=== PATIENT | male | born 1985 | race Caucasian/White ===

== ENCOUNTER 2022-03-03 07:01 | Outpatient (REF) | payer OTHER, SELFPAY ==
[2022-03-03 07:55] LABS: Alanine Aminotransferase 55 U/L (0-40); Albumin Level 4.9 g/dL (3.5-5.0); Alkaline Phosphatase 125 U/L (39-117); Anion Gap 11 (12-20); Aspartate Amino Transferase 27 U/L (5-37); Bilirubin Total 0.6 mg/dL (0.0-1.0); Blood Urea Nitrogen 12 mg/dL (9-16); C Reactive Protein 0.08 mg/dL (< or = 0.50); Carbon Dioxide 30 mmol/L (22-29); Chloride 104 mmol/L (96-108); Estimated Glomerular Filt Rate > 60; Glucose Random 109 mg/dL (60-115); Potassium 4.2 mmol/L (3.3-5.1); Sodium 141 mmol/L (135-145); Total Protein 7.7 g/dL (6.5-8.0)
[2022-03-03 08:18] LABS: Erythrocyte Sedimentation Rate 2 MM/HR (0-15)
[2022-03-10 09:47] LABS: Lamotrigine Lamictal 5.1 mcg/mL (4.0-18.0)
== END 2022-03-03 07:02 | disposition home or self-care (01) ==
LOC: HO.LAB 07:01
PROVIDERS: Visit Provider Psychiatry & Neurology Psychiatry
DX: F31.74 Bipolar disorder, in full remission, most recent episode manic (principal); R53.83 Other fatigue
CPT/HCPCS: 36415; 80053; 80175; 85652; 86140

== ENCOUNTER 2022-09-02 15:42 | Outpatient (REF) | payer OTHER, SELFPAY ==
[2022-09-02 16:46] LABS: Estimated Glomerular Filt Rate > 60
[2022-09-03 08:58] LABS: HIV AB/AG Nonreactive (Nonreactive); HIV Num 1 0.07 S/CO (0.00-0.99)
[2022-09-03 10:55] LABS: CT PCR NOT DETECTED (Not Detect.); NG PCR NOT DETECTED (Not Detect.)
[2022-09-07 14:53] LABS: HIV RNA PCR Qn Copies NOT DETECTED copies/mL (NOT DETECTED); HIV RNA PCR Qn Log Copies NOT DETECTED (NOT DETECTED)
[2022-09-12 14:41] LABS: RPR Quantitative Non-Reactive (Nonreactive); T.Pallidum Particle Agg Test Non-Reactive (Nonreactive)
== END 2022-09-02 15:43 | disposition home or self-care (01) ==
LOC: HO.LAB 15:42
PROVIDERS: Visit Provider Advanced Practice Midwife
DX: Z11.4 Encounter for screening for human immunodeficiency virus [HIV] (principal); Z11.3 Encounter for screening for infections with a predominantly sexual mode of transmission; Z20.828 Contact with and (suspected) exposure to other viral communicable diseases; Z79.899 Other long term (current) drug therapy
CPT/HCPCS: 0353U; 82565; 86592; 87389; 87536

== ENCOUNTER → 2022-12-02 16:04 | Outpatient (BNVA) | payer OTHER, SELFPAY | PROVIDERS: Visit Provider Psychiatry & Neurology Psychiatry | DX: Z13.89 Encounter for screening for other disorder (principal) ==

== ENCOUNTER → 2023-04-28 16:43 | Outpatient (BNVA) | payer OTHER, SELFPAY | PROVIDERS: Visit Provider Psychiatry & Neurology Psychiatry ==

== ENCOUNTER 2023-08-03 17:10 | Outpatient (AMB) | payer OTHER, SELFPAY ==
--- NOTE | 2023-08-03 16:28 | A.OFFPSYCH_ITS ---
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 Patient he quite happy regarding this going back to clear that he love. Patient's mood stable future oriented no depressive episodes no manic episodes. ADD seems to be generally controlled patient feeling he is not needing Concerta at this time may needed again when studying stable on clonidine and Lamictal Past Psychiatric History: Patient with history of psychotic depression history past remote hospitalizations and history of outpatient ECT Mental Status Exam Mental Status Exam Narrative: Mental Status Exam Narrative: Appearance: Casually dressed Behavior: Cooperative appropriate psychomotor: Within normal limits Speech: Normal volume and prosody Thought proccess logical and goal-directed Thought content: Future oriented no self-harming thoughts Mood: Mild anxiety Affect: Appropriate to mood full affect SI:denies HI:denies VH/AH:none Delusions: None Insight/judgment: Good insight and judgment Memory/cog: Intact reports some distractibility Assessment and Plan Assessment & Plan (1) Major depression, recurrent, full remission: Status: Acute Code(s): F33.42 - Major depressive disorder, recurrent, in full remission (2) Generalized anxiety disorder: Status: Acute Code(s): F41.1 - Generalized anxiety disorder (3) ADD (attention deficit disorder): Status: Acute Code(s): F98.8 - Other specified behavioral and emotional disorders with onset usually occurring in childhood and adolescence Plan pt doing well future oriented medically stable 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 Self Management counseling: Breathing Details-Self Mgmt counseling: Issues related to new chapter in his life and ongoing training Diagnosis and Prognosis Counseling: Adequacy of current interventions Details: I spent [30] minutes reviewing the record, seeing the patient and documenting in the medical record. Counseling provided to the patient/caregiver as outlined below. Addressed patient/caregiver concerns regarding current medication regime including effective adherence. Addressed patient/caregiver concerns regarding diagnosis and prognosis including accuracy of diagnosis, prognosis over time, impact of diagnosis. Addressed patient/caregiver concerns regarding impact of recent stressors. PFSH Medical History (Updated 08/06/22 @ 11:52 by Micah Krause MD) Generalized anxiety disorder Social History: Patient lives with his mother and grandmother grew up in [place] he is only child. 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
== END 2023-08-03 17:10 | disposition home or self-care (01) ==
LOC: HO.HOP 17:10
PROVIDERS: Visit Provider Psychiatry & Neurology Psychiatry
DX: F33.42 Major depressive disorder, recurrent, in full remission (principal); F41.1 Generalized anxiety disorder; F98.8 Other specified behavioral and emotional disorders with onset usually occurring in childhood and adolescence
CPT/HCPCS: 99214

== ENCOUNTER → 2023-08-03 17:10 | Outpatient (BNVA) | payer OTHER, SELFPAY | PROVIDERS: Visit Provider Psychiatry & Neurology Psychiatry ==

== ENCOUNTER 2024-02-16 13:05 | Outpatient (AMB) | payer BC, SELFPAY ==
--- NOTE | 2024-02-16 10:15 | A.OFFPSYCH_ITS ---
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 The job is stimulating and works for [employer] his base is out of [place] no new medical concerns no cycling . Pt has been dating which is new for him Past Psychiatric History: Patient with history of psychotic depression history past remote hospitalizations and history of outpatient ECT Mental Status Exam Mental Status Exam Narrative: Mental Status Exam Narrative: Appearance: Casually dressed Behavior: Cooperative appropriate psychomotor: Within normal limits Speech: Normal volume and prosody Thought proccess logical and goal-directed Thought content: Future oriented no self-harming thoughts Mood: Mild anxiety Affect: Appropriate to mood full affect SI:denies HI:denies VH/AH:none Delusions: None Insight/judgment: Good insight and judgment Memory/cog: Intact reports some distractibility Telehealth Telehealth Telehealth Platform: Other (please specify) (doxy) Location of provider rendering services: practice address Location of patient: address on file Patient Identification confirmed using: Name, : Yes Patient verbally consented to treatment: Yes Patient verbally consented to billing insurance company: Yes Minutes spent on Phone/Video with Pt.: 19 Assessment and Plan Assessment & Plan (1) Generalized anxiety disorder: Status: Acute Code(s): F41.1 - Generalized anxiety disorder (2) ADD (attention deficit disorder): Status: Acute Code(s): F98.8 - Other specified behavioral and emotional disorders with onset usually occurring in childhood and adolescence (3) Major depression, recurrent, full remission: Status: Acute Code(s): F33.42 - Major depressive disorder, recurrent, in full remission Plan pt has been doing well generally clonidine 0.1 mg hs lamictal continues no significant cycling has been able to manage ADD with strategies Concerta discontinued has not needed hydroxyzine three-month supply of Lamictal 150 b.i.d. 3 months' supply of clonidine 0.1 mg at bedtime change from 0.1 mg p.o. b.i.d. no significant side effects recent medical issues excisional lipoma Patient does have a history of psychotic depression history of keri on antidepressants has had ECT in the past has done well with Lamictal. Patient does tend to have some degree of relational anxiety he has starting a new relationship Medications: Changed From clonidine HCl 0.1 mg PO BID 60 tabs 2RF To clonidine HCl 0.1 mg PO BEDTIME 90 tabs 1RF Counseling and coordination of Care Details-Self Mgmt counseling: Issues related to job change recent dating and medication management Diagnosis and Prognosis Counseling: Impact of diagnosis on life functions Details: I spent [30] minutes reviewing the record, seeing the patient and documenting in the medical record. Counseling provided to the patient/caregiver as outlined below. Addressed patient/caregiver concerns regarding current medication regime including effective adherence. Addressed patient/caregiver concerns regarding diagnosis and prognosis including accuracy of diagnosis, prognosis over time, impact of diagnosis. Addressed patient/caregiver concerns regarding impact of recent stressors. [facility] Medical History (Updated 08/06/22 @ 11:52 by Micah Krause MD) Generalized anxiety disorder Social History: Patient lives with his mother and grandmother grew up in [place] he is only child. 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
== END 2024-02-16 13:05 | disposition home or self-care (01) ==
LOC: HO.HOP 13:05
PROVIDERS: Visit Provider Psychiatry & Neurology Psychiatry
DX: F41.1 Generalized anxiety disorder (principal); F98.8 Other specified behavioral and emotional disorders with onset usually occurring in childhood and adolescence; F33.42 Major depressive disorder, recurrent, in full remission
CPT/HCPCS: 99214

== ENCOUNTER → 2024-02-16 13:05 | Outpatient (BNVA) | payer BC, SELFPAY | PROVIDERS: Visit Provider Psychiatry & Neurology Psychiatry | DX: F41.1 Generalized anxiety disorder (principal); F98.8 Other specified behavioral and emotional disorders with onset usually occurring in childhood and adolescence; F33.42 Major depressive disorder, recurrent, in full remission ==

== ENCOUNTER 2024-08-13 11:57 | Outpatient (AMB) | payer BC, SELFPAY ==
--- NOTE | 2024-08-13 11:48 | MHC.OFFVISPS ---
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 No new medical issues . The patient's relationship has been going quite well they may be moving in together. 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 Patient markedly enjoys his job no mood instability no significant depressive or anxiety episodes. No new medical concerns Past Psychiatric History: Patient with history of psychotic depression history past remote hospitalizations and history of outpatient ECT Mental Status Exam Mental Status Exam Narrative: Mental Status Exam Narrative: Appearance: Casually dressed Behavior: Cooperative appropriate psychomotor: Within normal limits Speech: Normal volume and prosody Thought proccess logical and goal-directed Thought content: Future oriented no self-harming thoughts Mood: Described as good Affect: Appropriate to mood full affect SI:denies HI:denies VH/AH:none Delusions: None Insight/judgment: Good insight and judgment Memory/cog: Intact Assessment and Plan Assessment & Plan (1) Generalized anxiety disorder: Status: Acute Code(s): F41.1 - Generalized anxiety disorder (2) Major depression, recurrent, full remission: Status: Acute Code(s): F33.42 - Major depressive disorder, recurrent, in full remission (3) ADD (attention deficit disorder): Status: Acute Code(s): F98.8 - Other specified behavioral and emotional disorders with onset usually occurring in childhood and adolescence Plan Continue plan of care patient stable follow-up 4 months. No side effects noted patient stable knows how to reach this resume writer if needed Medications: Refilled lamotrigine (Lamictal) 150 mg PO BID 180 tabs 1RF 3 months clonidine HCl 0.1 mg PO BEDTIME 90 tabs 1RF Counseling and coordination of Care Details-Self Mgmt counseling: Issues related to his current happiness and feeling like he is fitting in Medication management counseling: Effectiveness Diagnosis and Prognosis Counseling: Accuracy of diagnosis and Adequacy of current interventions Details: I spent [] minutes reviewing the record, seeing the patient and documenting in the medical record. Counseling provided to the patient/caregiver as outlined below. Addressed patient/caregiver concerns regarding current medication regime including effective adherence. Addressed patient/caregiver concerns regarding diagnosis and prognosis including accuracy of diagnosis, prognosis over time, impact of diagnosis. Addressed patient/caregiver concerns regarding impact of recent stressors. [facility] Medical History (Updated 08/06/22 @ 11:52 by Micah Krause MD) Generalized anxiety disorder Social History: Patient lives with his mother and grandmother grew up in [place] he is only child. 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
--- OUTSIDE RECORDS SUMMARY | 2024-08-13 12:01 | XMS_ITS | Data Portability ---
Author Organization [place] - [facility], Allergy Address [address] [address] Assessment Encounter Date Assessment Date Assessment LastModified by Organization Details LastModified Time 04/20/2024 04/20/2024 Right-sided cerumen debrided without difficulty. Bilateral serous effusion identified. This is likely related to underlying eustachian tube dysfunction after allergy exacerbation during his trip to [place]. 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 I would anticipate his effusions to resolve spontaneously over the next several weeks [email or web address] Not available 04/20/2024 13:33:07 Plan of Treatment Reminders Order Date Submit Date Provider Last Modified By Organization Details Last Modified Time Details Appointments None record ed. Lab None record ed. Referral None record ed. Procedures None record ed. Surgeries None record ed. Imaging None record ed. Medication Orders None record ed. Patient TargetsNo targets recorded. Patient InstructionsNo instructions recorded. Reason for Referral None Reported. Problems Name Problem SNOMED Code Status Onset Date Resolution Date Notes Provider Name and Address Organization Details Recorded Time Temporoma ndibular joint disorder 54431227 Active 2015 Other specified disorders of temporoma ndibular joint; Note: Date Diagnosed : 07/30/2016 10:46 AM (M26.69) Not Available [facility] 4 02:54:51 Otalgia of left ear 2148374003 Active 2015 Otalgia, left ear; Note: Date Diagnosed : 02/24/2016 1:04 PM (H92.02) Not Available [facility] 4 02:54:51 Postopera tive follow-up visit Active 2014 Post op; Note: Date Diagnosed : 03/25/2015 2:18 PM (V67.00) Not Available [facility] 4 02:54:49 Impacted cerumen of bilateral ears 26745018405 51258 Active 2015 Impacted cerumen, bilateral ; Note: Date Diagnosed : 07/30/2016 10:44 AM (H61.23) Not Available [facility] 4 02:54:48 Abnormal auditory perceptio n 26162534 Active 2015 Other abnormal auditory perceptio ns, left ear; Note: Date Diagnosed : 02/24/2016 12:25 PM (H93.292) Not Available [facility] 4 02:54:49 Chronic tonsillit is 57009212 Active 2014 Chronic tonsillit is; Note: Date Diagnosed : 03/25/2015 2:18 PM (474.00) Tonsill itis, chronic; Note: Date Diagnosed : 11/13/2014 11:25 AM (474.00) ; Start Date : 5 Not Available [facility] 4 02:54:50 Allergic rhinitis 53641082 Active 2015 Allergic rhinitis, unspecifi ed; Note: Date Diagnosed : 02/24/2016 1:04 PM (J30.9) Not Available [facility] 4 02:54:48 Impacted cerumen in right ear 95344609202 18716 Active 2023 CHARANJIT VILLARREAL MD [address] [facility],[place] [address], [place], [phone] , [facility] - [facility] [place] 4 13:31:52 Bilateral disorder of Eustachia n tubes 24520159271 Active 2023 CHARANJIT VILLARREAL MD [address] [place] [address],[facility] [address], [place], [phone] , [facility] - [facility] [place] 4 13:32:02 Acute serous otitis media of bilateral ears 70226335673 Active 2023 CHARANJIT VILLARREAL MD [address] [place], [place] [address] [address], [place], [phone] , [facility] 4 13:32:14 Problem Notes None recorded. Procedures Surgical History Date Name Laterality Status Provider Name and Address Organization Details Recorded Time 4 Wax_DP completed CHARANJIT VILLARREAL MD [address] [place] [address], [phone], [facility] 04/20/2024 13:31:47 Tonsillectomy completed Misa Faulkner [facility] 04/20/2024 13:23:19 Imaging Results None recorded. Procedure Notes None recorded. Medical Equipment None Reported. Allergies Allergen ID Allergen Name Allergen Category Reaction Reaction Severity Criticality Documentation Date Start Date Code Code System Note Provider Name and Address Organization Details Recorded Time 062317 amoxicill in / clavulana te medicatio n other Not available Not available 01/10/2024 57334 RxNorm React ion: unkno wn, unspe cifie d;; Not Available [facility] 4 01:10:34 596800 penicilli n V potassium medicatio n other Not available Not available 01/10/2024 44974 5 RxNorm React ion: unkno wn, unspe cifie d;; Not Available [facility] 4 01:10:36 Medications Name Sig Start Date Stop Date Status Note LastModified by Organization Details LastModified Time lamotrigi ne 150 mg tablet TAKE 1 TABLET BY MOUTH TWICE A DAY FOR 3 MONTHS active Not Available Not Available No t Available neomycin- polymyxin -hydrocor t 3.5 mg/mL-10, 000 unit/mL-1 % ear solution PUT 3 DROPS IN INTO LEFT EAR 4 TIMES A DAY 04/20 completed Not Available Not Available Not Available clonidine HCl 0.1 mg tablet TAKE 1 TABLET BY MOUTH TWICE A DAY active Not Available Not Available No t Available lamotrigi ne 200 mg tablet 2014 active Medicati on ID: [id number] Du ration Value: 30 Brand Name: lamotrig ine Send Method: E-Prescr ibed Sub s Allowed: subs OK Speci al Instruct ion: TAKE 1 T PO QHS Medi cationGe nericNam e: lamotrig ine Not Available Not Available Not Available oxycodone 5 mg/5 mL oral solution 5-10 ml by mouth 04/20 completed Medicati on ID: [id number] Du ration Value: 7 Prescri bed By Name: Ashwin Brown rd, nd Name: oxycodon e Send Method: E-Prescr ibed Sub s Allowed: subs OK Medic ationGen ericName : oxycodon e Not Available Not Available Not Available TobraDex 0.3 %-0.1 % eye ointment APPLY LIBERALL Y TO BOTH EYES NEEDED X 14 DAYS 04/20 completed Not Available Not Available Not Available terbinafi ne HCl 250 mg tablet PLEASE SEE ATTACHED FOR DETAILED DIRECTIO NS active Not Available Not Available No t Available tacrolimu s 0.1 % topical ointment APPLY TO AFFECTED AREA TWICE A DAY 04/20 completed Not Available Not Available Not Available fluticaso ne propionat e 50 mcg/actua tion nasal spray,kameron pension 2 puff into both nostrils 04/20 completed Medicati on ID: [id number] D uration Value: 30 Prescri bed By Name: FANTASMA Gonzalez nd Name: fluticas one Send Method: E-Prescr ibed Sub s Allowed: subs OK Medic ationGen ericName : fluticas one Not Available Not Available Not Available ipratropi um bromide 21 mcg (0.03 %) nasal spray 2 spray into both nostrils 04/20 completed Medicati on ID: [id number] P rescribe d By Name: FANTASMA Gonzalez nd Name: ipratrop ium bromide Send Method: E-Prescr ibed Sub s Allowed: subs OK Medic ationGen ericName : ipratrop ium bromide Not Available Not Available Not Available azithromy valerie 500 mg tablet TAKE 1 TABLET BY MOUTH EVERY DAY FOR 3 DAYS 04/20 completed Not Available Not Available Not Available emtricita bine 200 mg-tenofo vir disoproxi l fumarate 300 mg tablet TAKE 1 TABLET BY MOUTH EVERY DAY FOR 90 DAYS 04/20 completed Not Available Not Available Not Available Vitals Date Recorded Body height Body mass index (BMI) Body weight Provider Name and Address Organization Details Last Updated DateTime 04/20/2024 177.8 cm 24.4 kg/m2 80197.7 g Misa Faulkner [place] - [facility] 04/20/2024 13:19:38 Social History Question Answer Notes LastModified by Organizat ion Details LastModified Time Tobacco Smoking Status Never Smoker Misa burger [place] - [facility] 04/20/2024 13:23:37 What Is Your Level Of Alcohol Consumption? None [email or web address] Information not available 04/20/2024 Sex: Unknown Functional Status None recorded. Mental Status None recorded. Family History Nothing Reported. Medical History Condition Response Depression Y Anxiety Y Immunizations Vaccine Type Date Status Note Provider Nam e and Address Organization Details Recorded Time influenza nasal, unspecified formulation 3 completed Misa burger [place] - [facility] 04/20/2024 13:23:54 Past Encounters Encounter ID Performer Location Encounter Start Date Encounter Closed Date Diagnosis/Indication Diagnosis SNOMED-CT Code Diagnosis ICD10 Code [id number] CHARANJIT VILLARREAL MD [facility] [address] [address] 04/20/2024 12:51:13 04/23/2024 08:35:13 Impacted cerumen in right ear 4813064006 858510 H61.21 Bilateral disorder of Eustachian tubes 2315417972 582616 H69.93 Acute sero us otitis media of bilateral ears 8833244794 453029 H65.03 Health Concerns Section Related Observation LastModified by Organization Detai ls LastModified Time None Recorded Concern Status LastModified by Organization Details LastModified Time None Recorded Advance Directives Directive None Recorded Payers Encounter Date Sequence Insurance Name Policy Number Policy Frazier Covered Member ID Frazier Member ID Guarantor Name 04/20/2024 1 [place] [id number] Bipin Balderrama [id number] Bipin Balderrama Notes Date Note Type Note Provider Name and Address Organization Details Recorded Time 04/20/2024 text/html 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
--- OUTSIDE RECORDS SUMMARY | 2024-08-13 12:01 | XMS_ITS | Data Portability ---
Author Organization [facility], [facility] OR/OP Address [address] [place] [address] Assessment No assessment recorded. Plan of Treatment Reminders Order Date Submit Date Provider Last Modified By Organization Details Last Modified Time Details Appointments None recorded. Lab urinalysis, dipstick [address] [place] [address], [address], [place], [address], 14:24:07 Referral None recorded. Procedures None recorded. Surgeries None recorded. Imaging None recorded. Medication Orders ciprofloxac in 500 mg tablet 2023 024 [email or web address] [id number], [address], [facility] [address], [place], [address], 14:24:07 Patient TargetsNo targets recorded. Patient Instructions Encounter Date Encounter Id Patient Instructions Last Modified By Organization Details Last Modified Time 06/18/2024 [id number] Patient symptoms are consistent with prostatitis. He will complete a 4 week course of Cipro. Side effects were discussed. He will work on his constipation. Follow-up in 5 weeks. [email or web address] Not available 06/18/2024 13:31:11 Reason for Referral None Reported. Results Created Date Observation Date Name Description Value Unit Range Abnormal Flag Note LastModifiedBy Organization Detail LastModifiedTime 06/18/2006/19/2024 URINA LYSIS , COMPL ETE specific gravity 1.020 1.005- 1.030 normal Not Available [facility] ([facility]) [address], [place], [address], 06/20/2024 06:07:27 06/18/2006/19/2024 URINA LYSIS , COMPL ETE pH 6.5 5.0-7. 5 normal Not Available [facility] ([facility]) [address], [place], [address], 06/20/2024 06:07:27 06/18/2006/19/2024 URINA LYSIS , COMPL ETE urine-color Yellow yellow Not Available [facility] ([facility]) [address] [place], [address], 06/20/2024 06:07:27 06/18/2006/19/2024 URINA LYSIS , COMPL ETE appearance Clear clear Not Available [facility] ([facility]) [address] [place], [address], 06/20/2024 06:07:27 06/18/2006/19/2024 URINA LYSIS , COMPL ETE WBC esterase Trace negati ve abnormal Not Available [facility] ([facility]) [address], [place], [address], 06/20/2024 06:07:27 06/18/2006/19/2024 URINA LYSIS , COMPL ETE protein Negati ve negati ve/tra ce Not Available [facility] ([facility]) [address] [place], [address], 06/20/2024 06:07:27 06/18/2006/19/2024 URINA LYSIS , COMPL ETE glucose Negati ve negati ve Not Available [facility] ([facility]) [address] [place], [address], 06/20/2024 06:07:27 06/18/2006/19/2024 URINA LYSIS , COMPL ETE ketones Negati ve negati ve Not Available [facility] ([facility]) [address], [place], [address], 06/20/2024 06:07:27 06/18/2006/19/2024 URINA LYSIS , COMPL ETE occult blood Negati ve negati ve Not Available [facility] ([facility]) [address] [place], [address], 06/20/2024 06:07:27 06/18/2006/19/2024 URINA LYSIS , COMPL ETE bilirubin Negati ve negati ve Not Available [facility] ([facility]) [address] [place], [address], 06/20/2024 06:07:27 06/18/2006/19/2024 URINA LYSIS , COMPL ETE urobilinogen ,semi-qn 0.2 mg/dL 0.2-1. 0 normal Not Available [facility] ([facility]) [address], [place], [address], 06/20/2024 06:07:27 06/18/2006/19/2024 URINA LYSIS , COMPL ETE nitrite, urine Negati ve negati ve Not Available [facility] ([facility]) [address] [place], [address], 06/20/2024 06:07:27 06/18/2006/19/2024 URINA LYSIS , COMPL ETE microscopic examination See below: Micro scopi c was indic ated and was perfo rmed. Not Available [facility] ([facility]) [address] [place], [address], 06/20/2024 06:07:27 06/18/2006/19/2024 URINA LYSIS , COMPL ETE WBC 11-30 /hpf 0 - 5 abnormal Not Available [facility] ([facility]) [address] [place], [address], 06/20/2024 06:07:27 06/18/20 24 06/19/2024 URINA LYSIS , COMPL ETE RBC None seen /hpf 0 - 2 Not Available [facility] ([facility]) [address], [place], [address], 06/20/2024 06:07:27 06/18/20 24 06/19/2024 URINA LYSIS , COMPL ETE epithelial cells (non renal) None seen /hpf 0 - 10 Not Available [facility] ([facility]) [address], [place], [address], 06/20/2024 06:07:27 06/18/2006/19/2024 URINA LYSIS , COMPL ETE epithelial cells (renal) CHILD AND YOUTH PROGRAM ASSISTANT Not Available [facility] ([facility]) [address], [place], [address], 06/20/2024 06:07:27 06/18/20 24 06/19/2024 URINA LYSIS , COMPL ETE casts None seen /lpf none seen Not Available [facility] ([facility]) [address], [place], [address], 06/20/2024 06:07:27 06/18/20 24 06/19/2024 URINA LYSIS , COMPL ETE cast type CHILD AND YOUTH PROGRAM ASSISTANT Not Available [facility] ([facility]) [address], [place], [address], 06/20/2024 06:07:27 06/18/2006/19/2024 URINA LYSIS , COMPL ETE crystals CHILD AND YOUTH PROGRAM ASSISTANT Not Available [facility] ([facility]) [address], [place], [address], 06/20/2024 06:07:27 06/18/20 24 06/19/2024 URINA LYSIS , COMPL ETE crystal type CHILD AND YOUTH PROGRAM ASSISTANT Not Available [facility] ([facility]) [address], [place], [address], 06/20/2024 06:07:27 06/18/2006/19/2024 URINA LYSIS , COMPL ETE mucus threads CHILD AND YOUTH PROGRAM ASSISTANT Not Available [facility] ([facility]) [address], [place], [address], 06/20/2024 06:07:27 06/18/2006/19/2024 URINA LYSIS , COMPL ETE bacteria None seen none seen/f ew Not Available [facility] ([facility]) [address], [place], [address], 06/20/2024 06:07:27 06/18/2006/19/2024 URINA LYSIS , COMPL ETE yeast CHILD AND YOUTH PROGRAM ASSISTANT Not Available [facility] ([facility]) [address], [place], [address], 06/20/2024 06:07:27 06/18/2006/19/2024 URINA LYSIS , COMPL ETE trichomonas CHILD AND YOUTH PROGRAM ASSISTANT Not Available [facility] ([facility]) [address], [place], [address], 06/20/2024 06:07:27 06/18/2006/19/2024 URINA LYSIS , COMPL ETE comment CHILD AND YOUTH PROGRAM ASSISTANT Not Available [facility] ([facility]) [address], [place], [address], 06/20/2024 06:07:27 06/18/2006/19/2024 URINA LYSIS , COMPL ETE microscopic examination CHILD AND YOUTH PROGRAM ASSISTANT Not Available [facility] ([facility]) [address], [place], [address], 06/20/2024 06:07:27 06/18/20 24 06/20/2024 URINE CULTU RE, ANGELAI NE urine culture, routine Final report Not Available [facility] ([facility]) [address], [place], [address], 06/20/2024 06:07:27 06/18/2006/20/2024 URINE CULTU RE, ROUTI NE result 1 No growth Not Available [facility] ([facility]) [address], [place], [address], 06/20/2024 06:07:27 06/18/20 24 06/18/2024 urina lysis , dipst ick Color yellow Not Available [facility] [address], [place], [place], , 06/18/2024 13:15:52 06/18/2006/18/2024 urina lysis , dipst ick Clarity clear Not Available [facility] [address], [place], [place], , 06/18/2024 13:15:52 06/18/2006/18/2024 urina lysis , dipst ick Glucose negati ve Not Available [facility] [address] , [place], [place], , 06/18/2024 13:15:52 06/18/2006/18/2024 urina lysis , dipst ick Bilirubin negati ve Not Available [facility] [address], [place], [place], , 06/18/2024 13:15:52 06/18/2006/18/2024 urina lysis , dipst ick Ketones negati ve Not Available [facility] [address], [place], [place], , 06/18/2024 13:15:52 06/18/2006/18/2024 urina lysis , dipst ick Specific [place] 1.025 Not Available [facility] [address], [place], [place], , 06/18/2024 13:15:52 06/18/2006/1806/18/2024 urina lysis , dipst ick Blood negati ve Not Available [facility] [address], [place], [place], , 06/18/2024 13:15:52 06/18/2006/18/2024 urina lysis , dipst ick pH 7.0 Not Available [facility] [address], [place], [place], , 06/18/2024 13:15:52 06/18/2006/18/2024 urina lysis , dipst ick Protein negati ve Not Available [facility] [address], [place], [place], , 06/18/2024 13:15:52 06/18/2006/18/2024 urina lysis , dipst ick Urobilinogen 0.2 Not Available [facility] [address], [place], [place], , 06/18/2024 13:15:52 06/18/2006/18/2024 urina lysis , dipst ick Nitrate negati ve Not Available [facility] [address], [place], [place], , 06/18/2024 13:15:52 06/18/2006/18/2024 urina lysis , dipst ick Leukocytes trace Not Available [facility] [address], [place], [place], , 06/18/2024 13:15:52 Result Notes None recorded. Problems Name Problem SNOMED Code Status Onset Date Resolution Date Notes Provider Name and Address Organization Details Recorded Time No current problems or disability 124046876 Active [facility] 13:01:38 Increased frequency of urination 030104044 Active 024 LIDIA LAM [address], [place], [address], [facility] [place] [facility] 12:59:59 Nocturia 445438522 Active 024 LIDIA LAM [address], [place], [address], [facility] [place] [facility] 13:00:09 Problem Notes None recorded. Procedures Surgical History Date Name Laterality Status Provider Name and Address Organization Details Recorded Time 5 Removal of tonsils completed Not Available Health Note 06/18/2024 12:10:25 Imaging Results None recorded. Procedure Notes None recorded. Medical Equipment None Reported. Allergies Allergen ID Allergen Name Allergen Category Reaction Reaction Severity Criticality Documentation Date Start Date Code Code System Note Provider Name and Address Organization Details Recorded Time 64724 penicilli n G Not available rash Not available Not available 06/18/2024 7980 RxNorm Not Available Health Note 12:10:24 No known drug allergies Medications Name Sig Start Date Stop Date Status Note LastModified by Organization Details LastModified Time lamotrigine 150 mg tablet TAKE 1 TABLET BY MOUTH TWICE A DAY FOR 3 MONTHS active Not Available Not Available No t Available neomycin-woody ymyxin-hydro josue 3.5 mg/mL-10,000 unit/mL-1 % ear solution PUT 3 DROPS IN INTO LEFT EAR 4 TIMES A DAY active Not Available Not Available Not Available doxycycline hyclate 100 mg capsule TAKE 1 CAPSULE BY MOUTH TWICE A DAY FOR 7 DAYS active Not Available Not Available No t Available ciprofloxaci n 500 mg tablet TAKE 1 TABLET EVERY 12 HOURS BY ORAL ROUTE WITH MEAL(S) FOR 28 DAYS. active Not Available Not Available No t Available TobraDex 0.3 %-0.1 % eye ointment APPLY LIBERALLY TO BOTH EYES NEEDED X 14 DAYS active Not Available Not Available No t Available ciclopirox 8 % topical solution active Not Available Not Available Not Available terbinafine HCl 250 mg tablet PLEASE SEE ATTACHED FOR DETAILED DIRECTIONS active Not Available Not Available N ot Available tacrolimus 0.1 % topical ointment APPLY TO AFFECTED AREA TWICE A DAY active Not Available Not Available No t Available ketoconazole 2 % topical cream APPLY ONE APPLICATION ONCE A DAY FOR 7-10 DAYS active Not Available Not Available No t Available azithromycin 500 mg tablet TAKE 1 TABLET BY MOUTH EVERY DAY FOR 3 DAYS active Not Available Not Available No t Available emtricitabin e 200 mg-tenofovir disoproxil fumarate 300 mg tablet TAKE 1 TABLET BY MOUTH EVERY DAY FOR 90 DAYS active Not Available Not Available No t Available Vitals Date Recorded Body height Body weight Body mass index (BMI) Provider Name and Address Organization Details Last Updated DateTime 06/18/2024 177.8 cm 34842.98936 95849 g 24.4 kg/m2 Not Available Health Note 06/18/2024 12:52:41 Social History Question Answer Notes LastModified by Organizat ion Details LastModified Time Tobacco Smoking Status Never Smoker Not Available Health Note 06/18/2024 12:10:26 What Is Your Level Of Alcohol Consumption? NONE [email or web address] Information not available 06/18/2024 What Is Your Level Of Caffeine Consumption? Moderate [email or web address] Information not available 06/18/2024 Which Illicit Or Recreational Drugs Have You Used? No [email or web address] Information not available 06/18/2024 What Was The Date Of Your Most Recent Tobacco Screening? 06/18/2024 [email or web address] Information not available 06/18/2024 Sex: Unknown Functional Status None recorded. Mental Status None recorded. Family History Relationship Description Onset Age of this Age Resolved Age Notes LastModified by Organization Details LastModified Time Father Family history of malignant neoplasm of kidney [email or web address] Not available 2023 12:10:23 Medical History Condition Response Urinary Tract Infections N Diabetes N Other Y Bleeding Disorder N Thyroid Disease N Asthma/Emphysema N Blood Transfusions N High Blood Pressure N Enlarged Prostate N Tuberculosis N Hepatitis/Jaundice N Cancer N Diverticulitis N Stroke N Crohn's Disease N Kidney Disease/Stones N Psychiatric Disorder/Depression N Rheumatic Heart Disease N Ulcerative Colitis N Sickle Cell Disease N Heart Disease N Sexually Transmitted Diseases N Immunizations Vaccine Type Date Status Note Provider Nam e and Address Organization Details Recorded Time influenza, unspecified formulation 4 completed Not Available Health Note 06/18/2024 12:10:28 Past Encounters Encounter ID Performer Location Encounter Start Date Encounter Closed Date Diagnosis/Indication Diagnosis SNOMED-CT Code Diagnosis ICD10 Code [id number] [facility] [address] [place] 06/18/2024 12:52:34 06/18/2024 13:20:10 Increased frequency of urination 921293291 R35.0 Nocturia 422159161 R35.1 Dysuria 45263497 R30.0 Perineal pain 043459504 R10.2 Health Concerns Section Related Observation LastModified by Organization Detai ls LastModified Time None Recorded Concern Status LastModified by Organization Details LastModified Time None Recorded Advance Directives Directive None Recorded Payers Encounter Date Sequence Insurance Name Policy Number Policy Frazier Covered Member ID Frazier Member ID Guarantor Name 06/18/2024 1 [place] Bipin Balderrama [id number] Bipin Balderrama Notes Date Note Type Note Provider Name and Address Organization Details Recorded Time 06/18/2024 text/html Patient is a 39 y/o male who presents as a new patient. He has been having white discharge from penis that started 2 weeks ago. Occurs more in the morning, and some during the day. Had negative STI testing. Was treated with doxycycline but still present. 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 He does experience constipation, and feels pain in his rectum. Sometimes he feels like he is sitting on a stone . Some burning with urination. Urine showed trace leukocytes. Santhosh score 25, IPS S symptoms score 7 and bother score 5. His biggest complaint is increased frequency of urination and nocturia 2 times a night. He does occasionally get some urgent desire to urinate and sensation that his bladder is not completely empty. Carmine Tovar MD [address], [place], [place], , [facility] 06/18/2024 13:55:47
== END 2024-08-13 11:58 | disposition home or self-care (01) ==
LOC: HO.HOP 11:57
PROVIDERS: Visit Provider Psychiatry & Neurology Psychiatry
DX: F41.1 Generalized anxiety disorder (principal); F33.42 Major depressive disorder, recurrent, in full remission; F98.8 Other specified behavioral and emotional disorders with onset usually occurring in childhood and adolescence
CPT/HCPCS: 99213

== ENCOUNTER → 2024-08-13 11:57 | Outpatient (BNVA) | payer BC, SELFPAY | PROVIDERS: Visit Provider Psychiatry & Neurology Psychiatry ==

== ENCOUNTER 2024-12-03 10:44 | Outpatient (AMB) | payer BC, SELFPAY ==
--- NOTE | 2024-12-03 11:12 | A.OFFPSYCH_ITS ---
Intake Intake Visit Reasons: depression Allergies amoxicillin [From Augmentin] Allergy (Mild, Unverified 05/15/20 16:34) UNKNOWN clavulanic acid [From Augmentin] Allergy (Mild, Unverified 05/15/20 16:34) UNKNOWN Medication List - Last Reconciled 12/03/24 by Micah Krause MD clonidine HCl 0.1 mg PO BEDTIME emtricitabine-tenofovir (TDF) 200-300 mg 1 tab PO DAILY lamotrigine (Lamictal) 150 mg PO BID 3 months HPI- Psychiatric Chief Complaint: depression HPI Narrative: Pt seen in f/u gm in hospice at the house will be moving in with his bf . Work is going ok has more awareness of flying and close calls . Bf had been on medical leave pt and partner will be living in [facility]. Therapist con pzoo . Pt has been stable x yrs on lamictal Past Psychiatric History: Patient with history of psychotic depression history p ast remote hospitalizations and history of outpatient ECT Assessment and Plan Assessment & Plan (1) Generalized anxiety disorder: Status: Acute Code(s): F41.1 - Generalized anxiety disorder (2) Major depression, recurrent, full remission: Status: Acute Code(s): F33.42 - Major depressive disorder, recurrent, in full remission (3) ADD (attention deficit disorder): Status: Acute Code(s): F98.8 - Other specified behavioral and emotional disorders with onset usually occurring in childhood and adolescence Plan cont plan of care no change indicated pt stable x yrs Medications: Refilled lamotrigine (Lamictal) 150 mg PO BID 180 tabs 1RF 3 months Counseling and coordination of Care Diagnosis and Prognosis Counseling: Adequacy of current interventions Details: I spent [30] minutes reviewing the record, seeing the patient and documenting in the medical record. Counseling provided to the patient/caregiver as outlined below. Addressed patient/caregiver concerns regarding current medication regime including effective adherence. Addressed patient/caregiver concerns regarding diagnosis and prognosis including accuracy of diagnosis, prognosis over time, impact of diagnosis. Addressed patient/caregiver concerns regarding impact of recent stressors. [facility] Medical History (Updated 08/06/22 @ 11:52 by Micah Krause MD) Generalized anxiety disorder Social History: Patient lives with his mother and grandmother grew up in [place] he is only child. 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
--- OUTSIDE RECORDS SUMMARY | 2024-12-03 12:42 | XMS_ITS | Data Portability ---
Author Organization [place] - [facility], Allergy Address [address] [address] Assessment Encounter Date Assessment Date Assessment LastModified by Organization Details LastModified Time 04/20/2024 04/20/2024 Right-sided cerumen debrided without difficulty. Bilateral serous effusion identified. This is likely related to underlying eustachian tube dysfunction after allergy exacerbation during his trip to [place]. Encouraged him to continue to use Flonase [...] Details Recorded Time Temporoma ndibular joint disorder 13282335 Active 2015 Other specified disorders of temporoma ndibular joint; Note: Date Diagnosed : 07/30/2016 10:46 AM (M26.69) Not Available [facility] 4 02:54:51 Otalgia of left ear 8981164107 Active 2015 Otalgia, left ear; Note: Date Diagnosed : 02/24/2016 1:04 PM (H92.02) Not Available [facility] 4 02:54:51 Postopera tive follow-up visit Active 2014 Post op; Note: Date Diagnosed : 03/25/2015 2:18 PM (V67.00) Not Available [facility] 4 02:54:49 Impacted cerumen of bilateral ears 47664406512 92501 Active 2015 Impacted cerumen, bilateral ; Note: Date Diagnosed : 07/30/2016 10:44 AM (H61.23) Not Available [facility] 4 02:54:48 Abnormal auditory perceptio n 95427497 Active 2015 Other abnormal auditory perceptio ns, left ear; Note: Date Diagnosed : 02/24/2016 12:25 PM (H93.292) Not Available [facility] 4 02:54:49 Chronic tonsillit is 99656718 Active 2014 Chronic tonsillit is; Note: Date Diagnosed : 03/25/2015 2:18 PM (474.00) Tonsill itis, chronic; Note: Date Diagnosed : 11/13/2014 11:25 AM (474.00) ; Start Date : 5 Not Available [facility] 4 02:54:50 Allergic rhinitis 88267099 Active 2015 Allergic rhinitis, unspecifi ed; Note: Date Diagnosed : 02/24/2016 1:04 PM (J30.9) Not Available [facility] 4 02:54:48 Impacted cerumen in right ear 91321681067 54735 Active 2023 CHARANJIT VILLARREAL MD [address] [facility],[place] [address], [place], [address] , [facility] - [facility] 4 13:31:52 Bilateral disorder of Eustachia n tubes 89681556444 Active 2023 CHARANJIT VILLARREAL MD [address] [place] [address],[facility] [address], [place], [address] , [facility] - [facility] 4 13:32:02 Acute serous otitis media of bilateral ears 93656370197 Active 2023 CHARANJIT VILLARREAL MD [address] [place], [place] [address] [address], [place], [address] , [facility] 4 13:32:14 Problem Notes None recorded. Procedures Surgical History Date Name Laterality Status Provider Name and Address Organization Details Recorded Time 4 Wax_DP completed CHARANJIT VILLARREAL MD [address] [place] [address], [phone], [facility] 04/20/2024 13:31:47 Tonsillectomy completed Misa Faulkner [facility] 04/20/2024 13:23:19 Imaging Results None recorded. Procedure Notes None recorded. Medical Equipment None Reported. Allergies Allergen ID Allergen Name Allergen Category Reaction Reaction Severity Criticality Documentation Date Start Date Code Code System Note Provider Name and Address Organization Details Recorded Time 435131 amoxicill in / clavulana te medicatio n other Not available Not available 01/10/2024 25242 RxNorm React ion: unkno wn, unspe cifie d;; Not Available [facility] 4 01:10:34 403481 penicilli n V potassium medicatio n other Not available Not available 01/10/2024 13571 5 RxNorm React ion: unkno wn, unspe cifie d;; Not Available [facility] 4 01:10:36 Medications Name Sig Start Date [...] mg tablet 2014 active Medicati on ID: 56505 Du ration Value: 30 Brand Name: lamotrig ine Send Method: E-Prescr ibed Sub s Allowed: subs OK Speci al Instruct ion: TAKE 1 T PO QHS Medi cationGe nericNam e: lamotrig ine Not Available Not Available Not Available oxycodone 5 mg/5 mL oral solution 5-10 ml by mouth 04/20 completed Medicati on ID: 13096 Du ration Value: 7 Prescri bed By [...] both nostrils 04/20 completed Medicati on ID: [id number] D uration Value: 30 Prescri bed By Name: FANTASMA Gonzalez nd Name: fluticas one Send Method: E-Prescr ibed Sub s Allowed: subs OK Medic ationGen ericName : fluticas one Not Available Not Available Not Available ipratropi um bromide 21 mcg (0.03 %) nasal spray 2 spray into both nostrils 04/20 completed Medicati on ID: [id number] P rescribe d By Name: FANTASMA Gonzalez [...] Updated DateTime 04/20/2024 177.8 cm 24.4 kg/m2 29797.7 g Misa Faulkner [place] - [facility] 04/20/2024 13:19:38 Social History Question Answer Notes LastModified by Organizat ion Details LastModified Time Tobacco Smoking Status Never Smoker Misa burger [place] - [facility] 04/20/2024 13:23:37 What Is Your Level Of Alcohol Consumption? None [email or web address] Information not available 04/20/2024 Sex: Unknown Functional Status None recorded. Mental Status None recorded. Family History Nothing Reported. Medical History Condition Response Anxiety Y Depression Y Immunizations Vaccine Type Date Status Note Provider Nam e and Address Organization Details Recorded Time influenza nasal, unspecified formulation 3 completed Misa burger [place] - [facility] 04/20/2024 13:23:54 Past Encounters Encounter ID Performer Location Encounter Start Date Encounter Closed Date Diagnosis/Indication Diagnosis SNOMED-CT Code Diagnosis ICD10 Code Diagnosis Note [id number] CHARANJIT VILLARREAL MD [facility] [address] [address] 04/20/2024 12:51:13 04/23/2024 08:35:13 Impacted cerumen in right ear 2724086755 558591 H61.21 Bilateral disorder of Eustachian tubes 3777360862 593814 H69.93 Acute sero us otitis media of bilateral ears 4530019772 864545 H65.03 Health Concerns Section Related Observation LastModified by Organization Detai ls LastModified Time None Recorded Concern Status LastModified by Organization Details LastModified Time None Recorded Advance Directives Directive None Recorded Payers Encounter Date Sequence Insurance Name Policy Number Policy Frazier Covered Member ID Frazier Member ID Guarantor Name 04/20/2024 1 [place] ([place]) [id number] Bipin Balderrama [id number] Bipin Balderrama Notes Date Note Type Note Provider Name and Address Organization Details Recorded Time 04/20/2024 text/html 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
--- OUTSIDE RECORDS SUMMARY | 2024-12-03 12:42 | XMS_ITS | Data Portability ---
Author Organization [facility], [facility] OR/OP Address [address] [place] [address] Assessment No assessment recorded. Plan of Treatment Reminders Order Date Submit Date Provider Last Modified By Organization Details Last Modified Time Details Appointments None recorded. Lab urinalysis, dipstick 2023 [address] [address], [address], [place], [address], 14:24:07 Referral None recorded. Procedures None recorded. Surgeries None recorded. Imaging None recorded. Medication Orders ciprofloxac in 500 mg tablet 2023 024 [email or web address] [id number], [address] [facility], [facility] [address], [place], [address], 14:24:07 Patient TargetsNo targets recorded. Patient Instructions Encounter Date Encounter Id Patient Instructions Last Modified By Organization Details Last Modified Time 06/18/2024 [id number] Patient symptoms are consistent with prostatitis. He [...] 1.020 1.005- 1.030 normal Not Available [facility] [address] [facility], [place], [address], 06/20/2024 06:07:27 06/18/2006/19/2024 URINA LYSIS , COMPL ETE pH 6.5 5.0-7. 5 normal Not Available [facility] [address] [facility], [place], [address], 06/20/2024 06:07:27 06/18/2006/19/2024 URINA LYSIS , COMPL ETE urine-color Yellow yellow Not Available [facility] [address] [place], [address], 06/20/2024 06:07:27 06/18/2006/19/2024 URINA LYSIS , COMPL ETE appearance Clear clear Not Available [facility] [address] [place], [address], 06/20/2024 06:07:27 06/18/2006/19/2024 URINA LYSIS , COMPL ETE WBC esterase Trace negati ve abnormal Not Available [facility] [address] [facility], [place], [address], 06/20/2024 06:07:27 06/18/2006/19/2024 URINA LYSIS , COMPL ETE protein Negati ve negati ve/tra ce Not Available [facility] [address] [place], [address], 06/20/2024 06:07:27 06/18/2006/19/2024 URINA LYSIS , COMPL ETE glucose Negati ve negati ve Not Available [facility] [address] [place], [address], 06/20/2024 06:07:27 06/18/2006/19/2024 URINA LYSIS , COMPL ETE ketones Negati ve negati ve Not Available [facility] [address] [facility], [place], [address], 06/20/2024 06:07:27 06/18/2006/19/2024 URINA LYSIS , COMPL ETE occult blood Negati ve negati ve Not Available [facility] [address] [place], [address], 06/20/2024 06:07:27 06/18/2006/19/2024 URINA LYSIS , COMPL ETE bilirubin Negati ve negati ve Not Available [facility] [address] [place], [address], 06/20/2024 06:07:27 06/18/2006/19/2024 URINA LYSIS , COMPL ETE urobilinogen ,semi-qn 0.2 mg/dL 0.2-1. 0 normal Not Available [facility] [address] [facility], [place], [address], 06/20/2024 06:07:27 06/18/2006/19/2024 URINA LYSIS , COMPL ETE nitrite, urine Negati ve negati ve Not Available [facility] [address] [place], [address], 06/20/2024 06:07:27 06/18/2006/19/2024 URINA LYSIS , COMPL ETE microscopic examination See below: Micro scopi c was indic ated and was perfo rmed. Not Available [facility] [address] [place], [address], 06/20/2024 06:07:27 06/18/2006/19/2024 URINA LYSIS , COMPL ETE WBC 11-30 /hpf 0 - 5 abnormal Not Available [facility] [address] [place], [address], 06/20/2024 06:07:27 06/18/20 24 06/19/2024 URINA LYSIS , COMPL ETE RBC None seen /hpf 0 - 2 Not Available [facility] [address] [facility], [place], [address], 06/20/2024 06:07:27 06/18/20 24 06/19/2024 URINA LYSIS , COMPL ETE epithelial cells (non renal) None seen /hpf 0 - 10 Not Available [facility] [address] [facility], [place], [address], 06/20/2024 06:07:27 06/18/2006/19/2024 URINA LYSIS , COMPL ETE epithelial cells (renal) POLE MAKER Not Available [facility] [address] [facility], [place], [address], 06/20/2024 06:07:27 06/18/20 24 06/19/2024 URINA LYSIS , COMPL ETE casts None seen /lpf none seen Not Available [facility] [address] [facility], [place], [address], 06/20/2024 06:07:27 06/18/20 24 06/19/2024 URINA LYSIS , COMPL ETE cast type POLE MAKER Not Available [facility] [address] [facility], [place], [address], 06/20/2024 06:07:27 06/18/2006/19/2024 URINA LYSIS , COMPL ETE crystals POLE MAKER Not Available [facility] [address] [facility], [place], [address], 06/20/2024 06:07:27 06/18/20 24 06/19/2024 URINA LYSIS , COMPL ETE crystal type POLE MAKER Not Available [facility] [address] [facility], [place], [address], 06/20/2024 06:07:27 06/18/2006/19/2024 URINA LYSIS , COMPL ETE mucus threads POLE MAKER Not Available [facility] [address] [facility], [place], [address], 06/20/2024 06:07:27 06/18/2006/19/2024 URINA LYSIS , COMPL ETE bacteria None seen none seen/f ew Not Available [facility] [address] [facility], [place], [address], 06/20/2024 06:07:27 06/18/2006/19/2024 URINA LYSIS , COMPL ETE yeast POLE MAKER Not Available [facility] [address] [facility], [place], [address], 06/20/2024 06:07:27 06/18/2006/19/2024 URINA LYSIS , COMPL ETE trichomonas POLE MAKER Not Available [facility] [address] [facility], [place], [address], 06/20/2024 06:07:27 06/18/2006/19/2024 URINA LYSIS , COMPL ETE comment POLE MAKER Not Available [facility] [address] [facility], [place], [address], 06/20/2024 06:07:27 06/18/2006/19/2024 URINA LYSIS , COMPL ETE microscopic examination POLE MAKER Not Available [facility] [address] [facility], [place], [address], 06/20/2024 06:07:27 06/18/20 24 06/20/2024 URINE CULTU RE, ANGELAI NE urine culture, routine Final report Not Available [facility] [address] [facility], [place], [address], 06/20/2024 06:07:27 06/18/2006/20/2024 URINE CULTU RE, ROUTI NE result 1 No growth Not Available [facility] [address] [facility], [place], [address], 06/20/2024 06:07:27 06/18/20 24 06/18/2024 urina lysis , dipst ick Color yellow Not Available [facility] [address], [place], [place], , 06/18/2024 13:15:52 06/18/2006/18/2024 urina lysis , dipst ick Clarity clear Not Available [facility] [address], [place], [place], , 06/18/2024 13:15:52 06/18/2006/18/2024 urina lysis , dipst ick Glucose negati ve Not Available [facility] [address] , [place], [place], , 06/18/2024 13:15:52 06/18/2006/18/2024 urina lysis , dipst ick Bilirubin negati ve Not Available [facility] [address], [place], [place], , 06/18/2024 13:15:52 06/18/2006/18/2024 urina lysis , dipst ick Ketones negati ve Not Available [facility] [address], [place], [place], , 06/18/2024 13:15:52 06/18/2006/18/2024 urina lysis , dipst ick Specific [place] 1.025 Not Available [facility] [address], [place], [place], , 06/18/2024 13:15:52 06/18/2006/1806/18/2024 urina lysis , dipst ick Blood negati ve Not Available [facility] [address], [place], [place], , 06/18/2024 13:15:52 06/18/2006/18/2024 urina lysis , dipst ick pH 7.0 Not Available [facility] [address], [place], [place], , 06/18/2024 13:15:52 06/18/2006/18/2024 urina lysis , dipst ick Protein negati ve Not Available [facility] [address], [place], [place], , 06/18/2024 13:15:52 06/18/2006/18/2024 urina lysis , dipst ick Urobilinogen 0.2 Not Available [facility] [address], [place], [place], , 06/18/2024 13:15:52 06/18/2006/18/2024 urina lysis , dipst ick Nitrate negati ve Not Available [facility] [address], [place], [place], , 06/18/2024 13:15:52 06/18/2006/18/2024 urina lysis , dipst ick Leukocytes trace Not Available [facility] [address], [place], [place], , 06/18/2024 13:15:52 Result Notes None recorded. Problems Name Problem SNOMED Code Status Onset Date Resolution Date Notes Provider Name and Address Organization Details Recorded Time No current problems or disability 577978630 Active [facility] 13:01:38 Increased frequency of urination 806857744 Active 024 LIDIA LAM [address], [place], [place], [facility] 12:59:59 Nocturia 006056909 Active 024 LIDIA LAM [address], [place], [address], [facility] 13:00:09 Problem Notes None [...] Name and Address Organization Details Recorded Time 35467 penicilli n G Not available rash Not [...] Details Last Updated DateTime 06/18/2024 177.8 cm 10924.13051 06627 g 24.4 kg/m2 Not Available Health Note 06/18/2024 12:52:41 Social History Question Answer Notes LastModified by Organizat ion Details LastModified Time Tobacco Smoking Status Never Smoker Not Available Health Note 06/18/2024 12:10:26 What Is Your Level Of Alcohol Consumption? NONE [email or web address] Information not available 06/18/2024 What Is Your Level Of Caffeine Consumption? Moderate [email or web address] Information not available 06/18/2024 Which Illicit Or [...] available 2023 12:10:23 Medical History Condition Response Other Y High Blood Pressure N Thyroid Disease N Enlarged Prostate N Kidney Disease/Stones N Psychiatric Disorder/Depression N Sexually Transmitted Diseases N Urinary Tract Infections N Asthma/Emphysema N Cancer N Stroke N Crohn's Disease N Sickle Cell Disease N Diabetes N Bleeding Disorder N Blood Transfusions N Tuberculosis N Hepatitis/Jaundice N Diverticulitis N Rheumatic Heart Disease N Ulcerative Colitis N Heart Disease N Immunizations Vaccine Type Date Status Note Provider Nam e and Address Organization Details Recorded Time influenza, unspecified formulation 4 completed Not Available Health Note 06/18/2024 12:10:28 Past Encounters Encounter ID Performer Location Encounter Start Date Encounter Closed Date Diagnosis/Indication Diagnosis SNOMED-CT Code Diagnosis ICD10 Code Diagnosis Note [id number] MD Coco Golden [address], [address] [place] 06/18/2024 12:52:34 06/18/2024 13:20:10 Increased frequency of urination 520315585 R35.0 Nocturia 639428873 R35.1 Dysuria 48928647 R30.0 Perineal pain 492797290 R10.2 Health Concerns Section Related Observation LastModified by Organization Detai ls LastModified Time None Recorded Concern Status LastModified by Organization Details LastModified Time None Recorded Advance Directives Directive None Recorded Payers Encounter Date Sequence Insurance Name Policy Number Policy Frazier Covered Member ID Frazier Member ID Guarantor Name 06/18/2024 1 [place] Bipin Balderrama [id number] Bipin Balderrama Notes Date Note Type [...] doxycycline but still present. 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
--- OUTSIDE RECORDS SUMMARY | 2024-12-03 12:42 | XMS_ITS | Clinical Summary ---
Author Organization [facility] Address [address] [place] [phone] Phone [email or web address] Care Credit Processor Name Role Phone Unavailable Primary Care Provider Unavailabl e Allergies Active Allergy Reactions Criticality Noted Date Comments Penicillins Anaphylaxis High 10/25/2023 Medications lamoTRIgine (LaMICtal) 150 MG tablet Take 150 mg by mouth in the morning and 150 mg before bedtime. 08/28/2023 Active emtricitabine-t enofovir disoproxil fumarate (TRUVADA) 200-300 MG per tablet TAKE 1 TABLET BY MOUTH EVERY DAY FOR 90 DAYS 08/03/2023 Active cloNIDine (CATAPRES) 0.1 MG tablet Take 0.1 mg by mouth in the morning and 0.1 mg in the evening. 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 Gender Identity Not on file Sexual Orientation Not on file Last Filed Vital Signs Vital Sign Reading Time Taken Comments Blood Pressure - - Pulse - - Temperature - - Respiratory Rate - - Oxygen Saturation - - Inhaled Oxygen Concentration - - Weight 77.1 kg (170 lb) 10/25/2023 9:19 AM SHEEP HERDER Height 177.8 cm (5' 10 ) 10/25/2023 9:19 AM SHEEP HERDER Body Mass Index 24.39 10/25/2023 9:19 AM SHEEP HERDER Plan of Treatment Health Maintenance Due Date Last Done Comments Dental Cleaning/Exam 1984 HIV Screening 1984 Hepatitis C Screening 1984 Annual Preventive Exam 12/31/2001 Hep B Infection Screening - Triple Screen 12/31/2001 Hepatitis B Immunization (1 of 3 - 19+ 3-dose series) 12/31/2002 Tetanus Diphtheria and Pertu ssis Immunization (1 - Tdap) 12/31/2002 Covid-19 Immunization (1 - 2 024-25 season) 2024 Influenza Immunization (Seas on Ended) 2025 HIB Immunization Aged Out No longer e ligible based on patient's age to complete this topic HPV Immunization Aged Out No longer e ligible based on patient's age to complete this topic Hepatitis A Immunization Aged Out No longer eligible based on patient's age to complete this topic Pneumococcal: Ped (0 to 5 Yr s) and At-Risk Member (6 to 64 Yrs) Aged Out No longer e ligible based on patient's age to complete this topic Polio Immunization Aged Out No longer eligible based on patient's age to complete this topic Varicella Immunization Aged Out No lo nger eligible based on patient's age to complete this topic Insurance OPT OUT PATIENT RESP NB
== END 2024-12-03 15:23 | disposition home or self-care (01) ==
LOC: HO.HOP 10:44
PROVIDERS: Visit Provider Psychiatry & Neurology Psychiatry
DX: F41.1 Generalized anxiety disorder (principal); F33.42 Major depressive disorder, recurrent, in full remission; F98.8 Other specified behavioral and emotional disorders with onset usually occurring in childhood and adolescence
CPT/HCPCS: 99214

== ENCOUNTER → 2024-12-03 10:44 | Outpatient (BNVA) | payer BC, SELFPAY | PROVIDERS: Visit Provider Psychiatry & Neurology Psychiatry | DX: Z13.89 Encounter for screening for other disorder (principal) ==

== ENCOUNTER 2025-07-17 16:02 | Outpatient (AMB) | payer BC, SELFPAY ==
--- NOTE | 2025-07-17 11:30 | A.OFFPSYCH_ITS ---
Intake Intake Visit Reasons: depression Allergies amoxicillin (From Augmentin) Allergy (Mild, Unverified 05/15/20 16:34) UNKNOWN clavulanic acid (From Augmentin) Allergy (Mild, Unverified 05/15/20 16:34) UNKNOWN Medication List - Last Reconciled 07/17/25 by Micah Krause MD clonidine HCl 0.1 mg PO BEDTIME emtricitabine-tenofovir (TDF) 200-300 mg 1 tab PO DAILY lamotrigine (Lamictal) 150 mg PO BID 3 months HPI- Psychiatric Chief Complaint: depression HPI Narrative: he patient verbally consented to this video encounter. This video encounter was conducted via secure, interactive video conferencing. The patient's identity was established before proceeding with the video encounter by confirmation of their name and an additional identifier. Reason for Visit: Medication management and mental health follow-up. 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 The visit focuses on medication management and mental health support. The patient discussed the passi ng of their grandmother in November, which they have navigated with resilience, indicating normal grief rather than clinical depression. The patient's partner, Valdez, is on medical leave due to foot surgeries and infections, and is not currently flying due to medication restrictions. The patient reports taking clonidine more frequently at night to help with sleep, which has been challenging due to a busy schedule and life transitions. They are no longer on PrEP, with current medications including clonidine and Lamictal. The patient is in a stable and positive period of life, living with a friend and in the process of finding a new place with their partner. They work approximately 80 hours a month and have a stable financial situation. The patient is also considering establishing care with a primary care provider (PCP) for future needs. Objective: Awake and alert. Not in acute respiratory distress. Appropriate mood and affect. Past Psychiatric History: Patient with history of psychotic depression history past remote hospitalizations and history of outpatient ECT Mental Status Exam Mental Status Exam Narrative: Patient cooperative to the interview good eye contact. Speech logical clear goal-directed. Mood euthymic full affect appropriate to mood. Content focused on feeling generally stable current life situation generally good living with his significant other enjoying being a certified flight instructor again. Future oriented no noted psychiatric symptoms SI or HI impulse control judgment excellent Telehealth Telehealth Telehealth Platform: Doximity (scribe) Location of provider rendering services: practice address Location of patient: address on file Patient Identification confirmed using: Name, : Yes Telehealth method: video Patient verbally consented to treatment: Yes Minutes spent on Phone/Video with Pt.: 20 Assessment and Plan Assessment & Plan (1) Major depression, recurrent, full remission: Status: Acute Code(s): F33.42 - Major depressive disorder, recurrent, in full remission (2) Generalized anxiety disorder: Status: Acute Code(s): F41.1 - Generalized anxiety disorder (3) ADD (attention deficit disorder): Status: Acute Code(s): F98.8 - Other specified behavioral and emotional disorders with onset usually occurring in childhood and adolescence Plan Continue clonidine at HS helpful for sleep Lamictal 150 b.i.d. no evidence of any significant mood symptoms Continue plan of care patient stable on current regimen Medications: Refilled lamotrigine (Lamictal) 150 mg PO BID 180 tabs 1RF 3 months clonidine HCl 0.1 mg PO BEDTIME 90 tabs 1RF Counseling and coordination of Care Medication management counseling: Effectiveness and Side effects Details-Med Mgmt counseling: No noted side effects Details: I spent [] minutes reviewing the record, seeing the patient and documenting in the medical record. Counseling provided to the patient/caregiver as outlined below. Addressed patient/caregiver concerns regarding current medication regime including effective adherence. Addressed patient/caregiver concerns regarding diagnosis and prognosis including accuracy of diagnosis, prognosis over time, impact of diagnosis. Addressed patient/caregiver concerns regarding impact of recent stressors. [facility] Medical History (Updated 08/06/22 @ 11:52 by Micah Krause MD) Generalized anxiety disorder Social History: Patient lives with his mother and grandmother grew up in [place] he is only child. Positive family history depression question paranoia alcoholism patient identifies as barakat not no children history of school difficulty has been diagnosed with ADD and has completed certification for medical professionals Substance History: none Trauma History: When the patient had a psychotic episode in your many years ago this was a traumatic experience Coding Level of Care Code Tele Est Pt Level 3 (87895) Diagnoses Major depression, recurrent, full remission F33.42 Generalized anxiety disorder F41.1 ADD (attention deficit disorder) F98.8
--- OUTSIDE RECORDS SUMMARY | 2025-07-18 04:38 | XMS_ITS | Data Portability ---
Author Organization [place] - [facility], Allergy Address [address] [address] Assessment Encounter Date Assessment Date Assessment LastModified by Organization Details LastModified Time 04/20/2024 04/20/2024 Right-sided cerumen debrided without difficulty. Bilateral serous effusion identified. This is likely related to underlying eustachian tube dysfunction after allergy exacerbation during his trip to [place]. 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 I would anticipate his effusions to resolve spontaneously over the next several weeks [email or web address] Not available 04/20/2024 13:33:07 03/13/2025 03/13/2025 40-year-old male presents for evaluation of eustachian tube dysfunction. Right-sided cerumen impaction was removed. There are bilateral serous middle ear effusions and tympanic membranes are retracted. Patient may continue with use of Afrin for 3 days. Discussed that after 3 days, there is risk of rhinitis medicamentosa with continued use of Afrin. Also recommended to start using Flonase nasal spray once daily and to continue with gentle auto insufflation. We discussed 5-day course of oral prednisone for eustachian tube dysfunction as patient has upcoming flights for work. Risks of steroids was discussed. Patient would like to proceed with a course of steroids and prescription was sent to his pharmacy. Follow-up in 2 to 3 months was offered, and patient will call to schedule as his work schedule varies. He will follow-up sooner with any concerns. [email or web address] Not available 03/13/2025 09:52:32 Plan of Treatment Reminders Order Date Submit Date Provider Last Modified By Organization Details Last Modified Time Details Appointments None recorded. Lab None recorded. Referral None recorded. Procedures None recorded. Surgeries None recorded. Imaging None recorded. Medication Orders prednisone 20 mg tablet 2024 025 [facility] #[id number], [address], [place], [address], 09:49:38 Patient TargetsNo targets recorded. Patient InstructionsNo instructions recorded. Reason for Referral None Reported. Problems Name Problem SNOMED Code Status Onset Date Resolution Date Notes Provider Name and Address Organization Details Recorded Time Postopera tive follow-up visit Active 2014 Post op; Note: Date Diagnosed : 03/25/2015 2:18 PM (V67.00) Not Available [facility] 4 02:54:49 Chronic tonsillit is 76829427 Active 2014 Chronic tonsillit is; Note: Date Diagnosed : 03/25/2015 2:18 PM (474.00) Tonsill itis, chronic; Note: Date Diagnosed : 11/13/2014 11:25 AM (474.00) ; Start Date : 5 Not Available [facility] 4 02:54:50 Otalgia of left ear 3023238192 Active 2015 Otalgia, left ear; Note: Date Diagnosed : 02/24/2016 1:04 PM (H92.02) Not Available [facility] 4 02:54:51 Abnormal auditory perceptio n 11097899 Active 2015 Other abnormal auditory perceptio ns, left ear; Note: Date Diagnosed : 02/24/2016 12:25 PM (H93.292) Not Available [facility] 4 02:54:49 Allergic rhinitis 75806787 Active 2015 Allergic rhinitis, unspecifi ed; Note: Date Diagnosed : 02/24/2016 1:04 PM (J30.9) Not Available [facility] 4 02:54:48 Temporoma ndibular joint disorder 03716609 Active 2015 Other specified disorders of temporoma ndibular joint; Note: Date Diagnosed : 07/30/2016 10:46 AM (M26.69) Not Available [facility] 4 02:54:51 Impacted cerumen of bilateral ears 88552566892 44901 Active 2015 Impacted cerumen, bilateral ; Note: Date Diagnosed : 07/30/2016 10:44 AM (H61.23) Not Available [facility] 4 02:54:48 Impacted cerumen in right ear 60655226942 60538 Active 2023 CHARANJIT VILLARREAL MD [address], [place], [address] , [facility] - [facility] 4 13:31:52 Bilateral disorder of Eustachia n tubes 17808925756 Active 2023 KAREY WITT PA-C [address] [place], [place] [address]on [place] [address], [place], [address] , [facility] - [facility] 5 09:49:08 Acute serous otitis media of bilateral ears 44876152862 Active 2023 CHARANJIT VILLARREAL MD [address] [place],[address] [facility], [place], [address] , [facility] - [facility] 4 13:32:14 Problem Notes None recorded. Procedures Surgical History Date Name Laterality Status Provider Name and Address Organization Details Recorded Time 03/13/20 25 Cerumen removal without microscope right completed KAREY WITT PA-C [address] [place] [address], [place], [address], [facility] - [facility] [place] 03/13/2025 09:48:30 04/20/20 24 Wax_DP completed CHARANJIT VILLARREAL MD [address] [place] [facility], [place], [address], [facility] - [facility] [place] 04/20/2024 13:31:47 Tonsillectomy completed Misa Faulkner [facility] [place] 04/20/2024 13:23:19 Imaging Results None recorded. Procedure Notes None recorded. Medical Equipment None Reported. Allergies Allergen ID Allergen Name Allergen Category Reaction Reaction Severity Criticality Documentation Date Start Date Code Code System Note Provider Name and Address Organization Details Recorded Time 10591128 amoxicill in / clavulana te medicatio n other Not available Not available 01/10/2024 RxNorm React ion: unkno wn, unspe cifie d;; Not Available [facility] 4 01:10:34 102864 penicilli n V potassium medicatio n other Not available Not available 01/10/202463028 5 RxNorm React ion: unkno wn, unspe cifie d;; Not Available [facility] 4 01:10:36 Medications Name Sig Start Date Stop Date Status Note LastModified by Organization Details LastModified Time lamotrigi ne 150 mg tablet TAKE 1 TABLET BY MOUTH TWICE A DAY X 3 MONTHS 03/13 completed Not Available Not Available Not Available neomycin- polymyxin -hydrocor t 3.5 mg/mL-10, 000 unit/mL-1 % ear solution PUT 3 DROPS IN INTO LEFT EAR 4 TIMES A DAY 04/20 completed Not Available Not Available Not Available clonidine HCl 0.1 mg tablet TAKE 1 TABLET BY MOUTH TWICE A DAY 03/13 completed Not Available Not Available Not Available doxycycli ne hyclate 100 mg capsule TAKE 1 CAPSULE BY MOUTH TWICE A DAY FOR 7 DAYS 03/11 completed Not Available Not Available Not Available lamotrigi ne 200 mg tablet 2014 active Medicati on ID: [id number] Du ration Value: 30 Brand Name: randi gonzalez Send Method: E-Prescr ibed Sub s Allowed: subs OK Speci al Instruct ion: TAKE 1 T PO [facility] nericNam e: lamotrig ine Not Available Not Available Not Available fluconazo le 150 mg tablet TAKE 1 TABLET EVERY 3 DAYS (2 PILLS A WEEK EX: TAKE PILL EVERY TUESDAY AND TUESDAY ) FOR 12 WEEKS 03/13 completed Not Available Not Available Not Available fluconazo le 200 mg tablet TAKE 1 TABLET BY MOUTH TWICE A WEEK WITH FOOD FOR 3 MONTHS TO KILL NAIL FUNGUS active Not Available Not Available No t Available prednison e 20 mg tablet TAKE 2 TABLETS BY MOUTH EVERY DAY FOR 5 DAYS active Not Available Not Available No t Available oxycodone 5 mg/5 mL oral solution 5-10 ml by mouth 04/20 completed Medicati on ID: [id number] Du ration Value: 7 Prescri bed By Name: Ashwin Brown rd, nd Name: oxycodon e Send Method: E-Prescr ibed Sub s Allowed: subs OK Medic ationGen ericName : oxycodon e Not Available Not Available Not Available ciproflox acin 500 mg tablet TAKE 1 TABLET EVERY 12 HOURS BY ORAL ROUTE WITH MEAL(S) FOR 28 DAYS. 03/11 completed Not Available Not Available Not Available doxycycli ne monohydra te 100 mg tablet 2 TABLET ORALLY DIRECTED 15 DAYS 03/11 completed Not Available Not Available Not Available TobraDex 0.3 %-0.1 % eye ointment APPLY LIBERALL Y TO BOTH EYES NEEDED X 14 DAYS 04/20 completed Not Available Not Available Not Available ciclopiro x 8 % topical solution APPLY THIN LAYER TO NAILBED DAILY, STRIP THE LAYERS OFF WEEKLY AND REPEAT 03/13 completed Not Available Not Available Not Available terbinafi ne HCl 250 mg tablet PLEASE SEE ATTACHED FOR DETAILED DIRECTIO NS 03/13 completed Not Available Not Available Not Available tacrolimu s 0.1 % topical ointment APPLY THIN LAYER TO ALL ECZEMA AREAS TWICE A DAY active Not Available Not Available No t Available triamcino lone acetonide 0.1 % topical ointment APPLY TO AFFECTED AREA TWICE A DAY UNTIL CLEARED (60GM TO LAST 30 DAYS) 03/13 completed Not Available Not Available Not Available ketoconaz ole 2 % topical cream APPLY TO AFFECTED AREA ONCE DAILY FOR 7-10 DAYS active Not Available Not Available No t Available fluticaso ne propionat e 50 mcg/actua tion nasal spray,kameron pension 2 puff into both nostrils 04/20 completed Medicati on ID: [id number] D uration Value: 30 Prescri bed By Name: FANTASMA Gonzalez nd Name: fluticas one Send Method: E-Prescr ibed Sub s Allowed: subs OK Medic ationGen ericName : fluticas one Not Available Not Available Not Available ipratropi um bromide 21 mcg (0.03 %) nasal spray 2 spray into both nostrils 04/20 completed Medicati on ID: [id number] P chuckie d By Name: FANTASMA Gonzalez nd Name: [...] and Address Organization Details Last Updated DateTime 03/13/2025 177.8 cm 25.8 kg/m2 58158.63 g Beatriz Brice [place] - [facility] 03/13/2025 08:57:01 Date Recorded Body height Body mass index (BMI) Body weight Provider Name and Address Organization Details Last Updated DateTime 04/20/2024 177.8 cm 24.4 kg/m2 28999.7 g Misa Faulkner [place] [facility] 04/20/2024 13:19:38 Social History None recorded. Functional Status Question Answer Note LastModified by Organization D etails LastModified Time What is your level of alcohol consumption? None [email or web address] Information not available 04/20/2024 Mental Status None recorded. Family History Nothing Reported. Medical History Condition Response Anxiety Y Depression Y Immunizations Vaccine Type Date Status Note Provider Nam e and Address Organization Details Recorded Time influenza nasal, unspecified formulation 3 completed Misa burger [place] - [facility] 04/20/2024 13:23:54 Past Encounters Encounter ID Performer Location Encounter Start Date Encounter Closed Date Diagnosis/Indication Diagnosis SNOMED-CT Code Diagnosis ICD10 Code Diagnosis IMO Codes Diagnosis Note [id number] CHARANJIT VILLARREAL MD [facility] [address] [address] 04/20/2024 12:51:13 04/23/2024 08:35:13 Impacted cerumen in right ear 8621686719 935450 H61.21 Bilateral disorder of Eustachian tubes 1086888771 628576 H69.93 Acute sero us otitis media of bilateral ears 9984302127 701889 H65.03 [id number] KAREY WITT PA-C [facility] [address] [place] [address] 03/13/2025 08:47:03 03/13/2025 09:30:47 Impacted cerumen in right ear 8581577832 890216 H61.21 Bilateral disorder of Eustachian tubes 6717513907 851546 H69.83 9162504 Acute sero us otitis media of bilateral ears 2886959499 679324 H65.03 Health Concerns Section Related Observation LastModified by Organization Detai ls LastModified Time None Recorded Concern Status LastModified by Organization Details LastModified Time None Recorded Advance Directives Directive None Recorded Payers Insurance Date Sequence Insurance Name Policy Number Policy Frazier Covered Member ID Frazier Member ID Guarantor Name 03/19/2025 1 THAI (PPO) [id number] Bipin Balderrama [id number] Bipin Balderrama Notes Date Note Type Note Provider Name and Address Organization Details Recorded Time 04/20/2024 text/html ROS as noted in the HPI 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 He reports URI symptoms started prior to his flight back home. In addition to nasal congestion, he has been experiencing intermittent ear pain, decreased hearing, and ear blockage bilaterally x 3 days. He has been using Sudafed, Afrin, and Valsalva maneuvers with minimal improvement. He has history of eustachian tube dysfunction, but no prior otologic surgeries. Denies PMH. CHARANJIT VILLARREAL MD [address] [place] [address], [place], [address], [place] - [facility] 03/13/2025 17:38:03
--- OUTSIDE RECORDS SUMMARY | 2025-07-18 04:38 | XMS_ITS | Clinical Summary ---
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 Gender Identity Not on file Sexual Orientation Not on file Last Filed Vital Signs Vital Sign Reading Time Taken Comments Blood Pressure - - Pulse - - Temperature - - Respiratory Rate - - Oxygen Saturation - - Inhaled Oxygen Concentration - - Weight 77.1 kg (170 lb) 10/25/2023 9:19 AM RELOCATION DIRECTOR Height 177.8 cm (5' 10 ) 10/25/2023 9:19 AM RELOCATION DIRECTOR Body Mass Index 24.39 10/25/2023 9:19 AM RELOCATION DIRECTOR Plan of Treatment Health Maintenance Due Date Last Done Comments Dental Cleaning/Exam 1984 HIV Screening 1984 Hepatitis C Screening 1984 HPV Immunization (1 - Male 3 -dose series) 12/31/1998 Annual Preventive Exam 12/31/2001 Hep B Infection Screening - Triple Screen 12/31/2001 Hepatitis B Immunization (1 of 3 - 19+ 3-dose series) 12/31/2002 Tetanus Diphtheria and Pertu ssis Immunization (1 - Tdap) 12/31/2002 Covid-19 Immunization (1 - 2 025-26 season) 2025 Influenza Immunization (#1) 2025 HIB Immunization Aged Out No longer e ligible based on patient's age to complete this topic Hepatitis A Immunization Aged Out No longer eligible based on patient's age to complete this topic Pneumococcal Immunization Aged Out No longer eligible based on patient's age to complete this topic Polio Immunization Aged Out No longer eligible based on patient's age to complete this topic Varicella Immunization Aged Out No lo nger eligible based on patient's age to complete this topic Insurance OPT OUT PATIENT RESP NB
--- OUTSIDE RECORDS SUMMARY | 2025-07-18 04:38 | XMS_ITS | Data Portability ---
Author Organization [facility], [facility]/OP Address [address] [place] [address] Assessment No assessment recorded. Plan of Treatment Reminders Order Date Submit Date Provider Last Modified By Organization Details Last Modified Time Details Appointments None recorded. Lab urinalysis, dipstick [address], [address], [place], [address], 14:24:07 Referral None recorded. Procedures None recorded. Surgeries None recorded. Imaging None recorded. Medication Orders ciprofloxac in 500 mg tablet 2023 [email or web address] [id number], [address], [facility] [address], [place], [address], 14:24:07 Patient TargetsNo targets recorded. Patient Instructions Encounter Date Encounter Id Patient Instructions Last Modified By Organization Details Last Modified Time 06/18/2024 [id number] Patient symptoms are consistent with prostatitis. He will complete a 4 week course of Cipro. Side effects were discussed. He will work on his constipation. Follow-up in 5 weeks. [email or web address] Not available 06/18/2024 13:31:11 Reason for Referral None Reported. Results Created Date Observation Date Name Description Value Unit Range Abnormal Flag Note LastModifiedBy Organization Detail LastModifiedTime 06/18/2006/19/2024 URINA LYSIS , COMPL ETE specific gravity 1.020 1.005- 1.030 normal Not Available [facility] ([facility]) [address], [place], [place], [address], 06/20/2024 06:07:27 06/18/2006/19/2024 URINA LYSIS , COMPL ETE pH 6.5 5.0-7. 5 normal Not Available [facility] ([facility]) [address], [place], [place], [address], 06/20/2024 06:07:27 06/18/2006/19/2024 URINA LYSIS , COMPL ETE urine-color Yellow yellow Not Available [facility] ([facility]) [address], [place], [place], [address], 06/20/2024 06:07:27 06/18/2006/19/2024 URINA LYSIS , COMPL ETE appearance Clear clear Not Available [facility] ([facility]) [address] [place], [address], 06/20/2024 06:07:27 06/18/2006/19/2024 URINA LYSIS , COMPL ETE WBC esterase Trace negati ve abnormal Not Available [facility] ([facility]) [address], [place], [place], [address], 06/20/2024 06:07:27 06/18/2006/19/2024 URINA LYSIS , COMPL ETE protein Negati ve negati ve/tra ce Not Available [facility] ([facility]) [address] [place], [address], 06/20/2024 06:07:27 06/18/2006/19/2024 URINA LYSIS , COMPL ETE glucose Negati ve negati ve Not Available [facility] ([facility]) [address] [place], [address], 06/20/2024 06:07:27 06/18/20 24 06/19/2024 URINA LYSIS , COMPL ETE ketones Negati ve negati ve Not Available [facility] ([facility]) [address] [place], [address], 06/20/2024 06:07:27 06/18/20 24 06/19/2024 URINA LYSIS , COMPL ETE occult blood Negati ve negati ve Not Available [facility] ([facility]) [address] [place], [address], 06/20/2024 06:07:27 06/18/2006/19/2024 URINA LYSIS , COMPL ETE bilirubin Negati ve negati ve Not Available [facility] ([facility]) [address] [place], [address], 06/20/2024 06:07:27 06/18/20 24 06/19/2024 URINA LYSIS , COMPL ETE urobilinogen ,semi-qn 0.2 mg/dL 0.2-1. 0 normal Not Available [facility] ([facility]) [address] [place], [address], 06/20/2024 06:07:27 06/18/2006/19/2024 URINA LYSIS , COMPL ETE nitrite, urine Negati ve negati ve Not Available [facility] ([facility]) [address] [place], [address], 06/20/2024 06:07:27 06/18/2006/19/2024 URINA LYSIS , COMPL ETE microscopic examination See below: Micro scopi c was indic ated and was perfo rmed. Not Available [facility] ([facility]) [address] [place], [address], 06/20/2024 06:07:27 06/18/2006/19/2024 URINA LYSIS , COMPL ETE WBC 11-30 /hpf 0 - 5 abnormal Not Available [facility] ([facility]) [address] [place], [address], 06/20/2024 06:07:27 06/18/20 24 06/19/2024 URINA LYSIS , COMPL ETE RBC None seen /hpf 0 - 2 Not Available [facility] ([facility]) [address], [place], [address], 06/20/2024 06:07:27 06/18/2006/19/2024 URINA LYSIS , COMPL ETE epithelial cells (non renal) None seen /hpf 0 - 10 Not Available [facility] ([facility]) [address], [place], [place], [address], 06/20/2024 06:07:27 06/18/2006/19/2024 URINA LYSIS , COMPL ETE epithelial cells (renal) [employer] Not Available [facility] ([facility]) [address], [place], [place], [address], 06/20/2024 06:07:27 06/18/20 24 06/19/2024 URINA LYSIS , COMPL ETE casts None seen /lpf none seen Not Available [facility] ([facility]) [address], [place], [place], [address], 06/20/2024 06:07:27 06/18/20 24 06/19/2024 URINA LYSIS , COMPL ETE cast type [employer] Not Available [facility] ([facility]) [address], [place], [place], [address], 06/20/2024 06:07:27 06/18/20 24 06/19/2024 URINA LYSIS , COMPL ETE crystals [employer]ER Not Available [facility] ([facility]) [address], [place], [place], [address], 06/20/2024 06:07:27 06/18/20 24 06/19/2024 URINA LYSIS , COMPL ETE crystal type [employer]ER Not Available [facility] ([facility]) [address], [place], [place], [address], 06/20/2024 06:07:27 06/18/2006/19/2024 URINA LYSIS , COMPL ETE mucus threads [employer] Not Available [facility] ([facility]) [address], [place], [place], [address], 06/20/2024 06:07:27 06/18/2006/19/2024 URINA LYSIS , COMPL ETE bacteria None seen none seen/f ew Not Available [facility] ([facility]) [address], [place], [place], [address], 06/20/2024 06:07:27 06/18/2006/19/2024 URINA LYSIS , COMPL ETE yeast [employer] Not Available [facility] ([facility]) [address], [place], [place], [address], 06/20/2024 06:07:27 06/18/2006/19/2024 URINA LYSIS , COMPL ETE trichomonas [employer] Not Available [facility] ([facility]) [address], [place], [place], [address], 06/20/2024 06:07:27 06/18/2006/19/2024 URINA LYSIS , COMPL ETE comment [employer] Not Available [facility] ([facility]) [address], [place], [place], [address], 06/20/2024 06:07:27 06/18/2006/19/2024 URINA LYSIS , COMPL ETE microscopic examination [employer] Not Available [facility]) [address], [place], [place], [address], 06/20/2024 06:07:27 06/18/2006/20/2024 URINE CULTU RE, ROUTI NE urine culture, routine Final report Not Available [facility] ([facility]) [address], [place], [place], [address], 06/20/2024 06:07:27 06/18/2006/20/2024 URINE CULTU RE, ROUTI NE result 1 No growth Not Available [facility] ([facility]) [address], [place], [place], [address], 06/20/2024 06:07:27 06/18/2006/18/2024 urina lysis , dipst ick Color yellow Not Available [facility] [address], [place], [place], , 06/18/2024 13:15:52 06/18/2006/18/2024 urina lysis , dipst ick Clarity clear Not Available [facility] [address] , [place], [place], , 06/18/2024 13:15:52 06/18/2006/18/2024 urina lysis , dipst ick Glucose negati ve Not Available [facility] [address] , [place], [place], , 06/18/2024 13:15:52 06/18/2006/18/2024 urina lysis , dipst ick Bilirubin negati ve Not Available [facility] [address], [place], [place], , 06/18/2024 13:15:52 06/18/2006/18/2024 urina lysis , dipst ick Ketones negati ve Not Available [facility] [address] , [place], [place], , 06/18/2024 13:15:52 06/18/2006/18/2024 urina lysis , dipst ick Specific Excelsior 1.025 Not Available [facility] [place] [address], [place], [place], , 06/18/2024 13:15:52 06/18/2006/18/2024 urina lysis , dipst ick Blood negati ve Not Available [facility] [address], [place], [place], , 06/18/2024 13:15:52 06/18/2006/18/2024 urina lysis , dipst ick pH 7.0 Not Available [facility] [address] , [place], [place], , 06/18/2024 13:15:52 06/18/2006/18/2024 urina lysis , dipst ick Protein negati ve Not Available [facility] [address] , [place], [place], , 06/18/2024 13:15:52 06/18/2006/18/2024 urina lysis , dipst ick Urobilinogen 0.2 Not Available [facility] [address], [place], [place], , 06/18/2024 13:15:52 06/18/2006/18/2024 urina lysis , dipst ick Nitrate negati ve Not Available [facility] [address] , [place], [place], , 06/18/2024 13:15:52 06/18/2006/18/2024 urina lysis , dipst ick Leukocytes trace Not Available [facility] [address] , [place], [place], , 06/18/2024 13:15:52 Result Notes None recorded. Problems Name Problem SNOMED Code Status Onset Date Resolution Date Notes Provider Name and Address Organization Details Recorded Time No current problems or disability 351982652 Active [facility] 13:01:38 Increased frequency of urination 946925904 Active 024 LIDIA LAM [address], [place], [facility] 12:59:59 Nocturia 323269725 Active 024 LIDIA LAM [address], [place], [address], [facility] 13:00:09 Problem Notes None [...] Name and Address Organization Details Recorded Time 93237 penicilli n G Not available rash Not [...] Details Last Updated DateTime 06/18/2024 177.8 cm 26488.75540 42956 g 24.4 kg/m2 Not Available Health Note 06/18/2024 12:52:41 Social History Question Answer Notes LastModified by Organizat ion Details LastModified Time Tobacco Smoking Status Never Smoker Not Available Health Note 06/18/2024 12:10:26 What Is Your Level Of Caffeine Consumption? Moderate [email or web address] Information not available 06/18/2024 Which Illicit Or Recreational Drugs Have You Used? No [email or web address] Information not available 06/18/2024 What Was The Date Of Your Most Recent Tobacco Screening? 06/18/2024 [email or web address] Information not available 06/18/2024 Sex: Unknown Functional Status Question Answer Note LastModified by Organization D etails LastModified Time What is your level of alcohol consumption? NONE [email or web address] Information not available 06/18/2024 Mental Status None recorded. Family History Relationship [...] Organization Details Recorded Time influenza, unspecified formulation completed Not Available Health Note 06/18/2024 12:10:28 Past Encounters Encounter ID Performer Location Encounter Start Date Encounter Closed Date Diagnosis/Indication Diagnosis SNOMED-CT Code Diagnosis ICD10 Code Diagnosis IMO Codes Diagnosis Note [id number] LIDIA LAM [address], [address] [place] 06/18/2024 12:52:34 06/18/2024 13:20:10 Increased frequency of urination 604794766 R35.0 02262 Nocturia 660496599 R35.1 75611 Dysuria 61275372 R30.0 71108 Perineal pain 887104070 R10.2 [id number] Health Concerns Section Related Observation LastModified by Organization Detai ls LastModified Time None Recorded Concern Status LastModified by Organization Details LastModified Time None Recorded Advance Directives Directive None Recorded Payers Insurance Date Sequence Insurance Name Policy Number Policy Frazier Covered Member ID Frazier Member ID Guarantor Name 07/29/2024 1 [id number] Bipin Balderrama [id number] Bipin Balderrama Notes Date Note Type [...] but still present. 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
== END 2025-07-17 16:03 | disposition home or self-care (01) ==
LOC: HO.HOP 16:02
PROVIDERS: Visit Provider Psychiatry & Neurology Psychiatry
DX: F33.42 Major depressive disorder, recurrent, in full remission (principal); F41.1 Generalized anxiety disorder; F98.8 Other specified behavioral and emotional disorders with onset usually occurring in childhood and adolescence
CPT/HCPCS: 99213